=== PATIENT | female | born 1960 | race Caucasian/White ===

== ENCOUNTER 2017-08-11 11:25 | Emergency (ER) | payer SELFPAY ==
[~2017-08-11] VITALS: Ht 160 cm; Wt 74.8 kg
[~2017-08-11 11:25] MED LIST: ACYC800T PO; HYDR-757 PO; IBUP200C75 PO; METO-370 PO
--- NOTE | 2017-08-11 11:49 | ED Cough/URI ---
General Chief Complaint: Respiratory Problems Stated Complaint: COUGH/CONGESTION WHEEZING Nursing Triage Note: C/O PRODUCTIVE COUGH TIMES 3 WEEKS History of Present Illness Date Seen by Provider: Aug 11, 2017 Time Seen by Provider: 11:35 Initial Comments Patient presents to emergency room with cough, congestion for 2 weeks. Patient reports just finishing a course of antibiotics for an infected tooth. Patient has been taking Coricidin sdbq-xip-gkibwec without relief. Timing/Duration: other (2 weeks) Severity/Quality: productive cough Prior Episodes/Possible Cause: no prior episodes Modifying Factors: Worse With Lying Down Associated Symptoms: nasal congestion, nasal drainage Allergies and Home Medications Allergies Uncoded Allergies: PCN (Adverse Reaction, Unknown, UNKNOWN, 04/03/17) Home Medications Acyclovir 800 Mg Tablet, 800 MG PO 5XD Prescribed by: LB BEAN on 04/03/17 1147 Hydrocodone/Acetaminophen 1 Each Tablet, 1 EACH PO Q4H PRN for PAIN-SEVERE Prescribed by: LB BEAN on 04/03/17 114 Ibuprofen 200 Mg Capsule, 200 MG PO PRN, (Reported) Metoprolol Succinate 50 Mg Tab.er.24h, 50 MG PO DAILY Prescribed by: LB BEAN on 04/03/17 1147 Patient Home Medication List Home Medication List Reviewed: Yes Constitutional: see HPI, other (cough and congestion) EENTM: see HPI, no symptoms reported Respiratory: cough, phlegm Cardiovascular: no symptoms reported, see HPI Gastrointestinal: no symptoms reported, see HPI Genitourinary: no symptoms reported, see HPI Musculoskeletal: no symptoms reported, see HPI Skin: no symptoms reported, see HPI Psychiatric/Neurological: No Symptoms Reported, See HPI Hematologic/Lymphatic: No Symptoms Reported, See HPI Immunological/Allergic: no symptoms reported, see HPI Past Xvhlilc-Uyvtzy-Nhpqke Hx Patient Social History Alcohol Use: Denies Use Recreational Drug Use: No Smoking Status: Current Everyday Smoker Recent Foreign Travel: No Contact w/Someone Who Travel: No Recent Infectious Disease Expo: No Recent Hopitalizations: No Physical Abuse: No Sexual Abuse: No Mistreated: No Fear: No Immunizations Up To Date Tetanus Booster (TDap): Unknown Surgeries History of Surgeries: Yes Surgeries: Appendectomy Respiratory History of Respiratory Disorde: No Cardiovascular History of Cardiac Disorders: Yes Cardiac Disorders: Hypertension Neurological History of Neurological Disord: No Reproductive System Female Reproductive Disorders: Ovarian Cyst Genitourinary History of Genitourinary Disor: No Gastrointestinal History of Gastrointestinal Di: No Musculoskeletal History of Musculoskeletal Dis: No Endocrine History of Endocrine Disorders: No HEENT History of HEENT Disorders: No Cancer 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: Ovarian Psychosocial History of Psychiatric Problem: No Suicide Risk Score: 0 Integumentary History of Skin or Integumenta: Yes Skin/Integumentary Disorders: Recent Skin Changes Blood Transfusions History of Blood Disorders: No Adverse Reaction to a Blood Tr: No Physical Exam Vital Signs Vital Signs - First Documented 08/11/17 11:33 Temp 98.0 Pulse 75 Resp 20 B/P (MAP) 180/90 (120) Pulse Ox 96 Capillary Refill : Less Than 3 Seconds General Appearance: WD/WN, no apparent distress Eyes: Bilateral Eye Normal Inspection HEENT: PERRL/EOMI, normal ENT inspection Neck: non-tender, full range of motion Respiratory: chest non-tender, lungs clear, normal breath sounds, no respiratory distress, no accessory muscle use Cardiovascular: normal peripheral pulses, regular rate, rhythm, no edema, no gallop, no JVD, no murmur Gastrointestinal: normal bowel sounds, non tender Extremities: normal range of motion, non-tender, normal inspection, no pedal edema, no calf tenderness Neurologic/Psychiatric: alert, normal mood/affect, oriented x 3 Skin: normal color, warm/dry Progress/Results/Core Measures Suspected Sepsis Recent Fever Within 48 Hours: No Infection Criteria Present: None New/Unexplained Altered Menta: No Sepsis Screen: No Definite Risk Sepsis Diagnosis: SIRS Temperature:98.0 Pulse: 75 Respiratory Rate: 20 Blood Pressure 180 /90 Mean: 120 Results/Orders My Orders Orders - LB BEAN APRN Chest Pa/Lat (2 View) (08/11/17 11:34) Vital Signs/I&O Vital Sign - Last 12Hours 08/11/17 11:33 Temp 98.0 Pulse 75 Resp 20 B/P (MAP) 180/90 (120) Pulse Ox 96 Capillary Refill : Less Than 3 Seconds Blood Pressure Mean: 120 Departure Impression Impression: Primary Impression: Hypertension Additional Impression: Bronchitis Disposition: 01 HOME, SELF-CARE Condition: Stable Departure-Patient Inst. Decision time for Depature: 12:07 Referrals: SHASHANK FRAGOSO MD (PCP/Family) Primary Care Physician Patient Instructions: Acute Bronchitis, Adult (DC), High Blood Pressure (DC) Add. Discharge Instructions: 1. Medication as directed 2. Follow-up with your doctor next week 3. Return to ER for any concerns All discharge instructions reviewed with patient and/or family. Voiced understanding. Scripts Lisinopril (Lisinopril) 10 Mg Tablet 10 MG PO DAILY, #10 TAB Prov: LB BEAN APRN 08/11/17 Azithromycin (Azithromycin) 250 Mg Tablet 250 MG PO UD, #6 TAB TAKE 2 TABLETS ON DAY ONE THEN TAKE 1 TABLET DAILY FOR FOUR MORE DAYS Prov: LB BEAN APRN 08/11/17 Prednisone (Prednisone) 20 Mg Tab 40 MG PO DAILY, #8 TAB Prov: LB BEAN APRN 08/11/17 LB BEAN APRN Aug 11, 2017 11:49
[2017-08-11] MEDS ORDERED: AZIT250T12 PO (12:08)
[2017-08-11] MEDS ORDERED: LISI10TA2 PO (12:08)
[2017-08-11] MEDS ORDERED: PRD20T PO (12:08)
--- NOTE | 2017-08-11 12:09 | Diagnostic Imaging Report ---
INDICATION: Congestion and wheezing. Time of exam 12:09 PM No prior studies are available for comparison. The heart size is normal. The pulmonary vascularity is unremarkable. The lungs are clear. No infiltrate, effusion or pneumothorax is detected. Impression: No acute cardiopulmonary process is detected. Dictated by: Dictated on workstation # [id number]
[2017-08-11 12:17] VITALS: BP 138/87
--- OUTSIDE RECORDS SUMMARY | 2017-08-13 04:26 | XMS REPORT | Continuity of Care Document ---
Author Author [facility] Address Unknown Phone Unavailable Allergies Active Description Code Type Severity Reaction Onset Reported/Identified Relationship to Patient Clinical Status Yes Penicillins Drug Allergy N/A N/A 09/04/2014 Medications There is no data. Problems Date Dx Coded Attending Type Code Diagnosis Diagnosed By 01/16/2012 300.00 ANXIETY STATE UNSPECIFIED 01/16/2012 GWENDOLYN VALDIVIA APRN A 300.00 ANXIETY STATE UNSPECIFIED 01/16/2012 MATT CHURCHILL DO 300.00 ANXIETY STATE UNSPECIFIED 01/16/2012 SHANON CYR APRN S 300.00 ANXIETY STATE UNSPECIFIED 01/16/2012 MATT CHURCHILL DO K 300.00 ANXIETY STATE UNSPECIFIED 01/16/2012 MATT CHURCHILL DO K 300.00 ANXIETY STATE UNSPECIFIED 01/03/2013 GWENDOLYN VALDIVIA APRN A 626.8 DYSFUNCTIONAL UTERINE BLEEDING 01/03/2013 GWENDOLYN VALDIVIA APRN A V19.8 FAMILY HISTORY OF OTHER CONDITION 01/03/2013 MATT CHURCHILL DO K 626.8 DYSFUNCTIONAL UTERINE BLEEDING 01/03/2013 MATT CHURCHILL DO K V19.8 FAMILY HISTORY OF OTHER CONDITION 01/03/2013 SHANON CYR APRN S 626.8 DYSFUNCTIONAL UTERINE BLEEDING 01/03/2013 SHANON CYR APRN S V19.8 FAMILY HISTORY OF OTHER CONDITION 01/03/2013 MATT CHURCHILL DO K 626.8 DYSFUNCTIONAL UTERINE BLEEDING 01/03/2013 MATT CHURCHILL DO K V19.8 FAMILY HISTORY OF OTHER CONDITION 01/03/2013 MATT CHURCHILL DO K 626.8 DYSFUNCTIONAL UTERINE BLEEDING 01/03/2013 MANUEL CHURCHILL DOA K V19.8 FAMILY HISTORY OF OTHER CONDITION 03/20/2013 GWENDOLYN VALDIVIA APRN A 305.1 TOBACCO ABUSE 03/20/2013 GWENDOLYN VALDIVIA APRN A 627.8 OTHER SPECIFIED MENOPAUSAL AND POSTMENOPAUSAL DISORDERS 03/20/2013 SHEA TIP LENGTH CHECKER GWENDOLYN A V73.81 HPV SCREENING 03/20/2013 SHEA TIP LENGTH CHECKERGUEVARAGWENDOLYN A V76.10 BREAST CANCER SCREENING 03/20/2013 SHEA LEROYNGUEVARAGWENDOLYN A V76.2 CERVICAL CANCER SCREENING (PAP SMEAR) 03/20/2013 SHEA LEROYN GWENDOLYN A V76.51 COLON CANCER SCREENING 03/20/2013 CHURCHILL DO, MATT K 305.1 TOBACCO ABUSE 03/20/2013 CHURCHILL DO, MATT K 627.8 OTHER SPECIFIED MENOPAUSAL AND POSTMENOPAUSAL DISORDERS 03/20/2013 CHURCHILL DO, MATT K V73.81 HPV SCREENING 03/20/2013 CHURCHILL DO, MATT K V76.10 BREAST CANCER SCREENING 03/20/2013 CHURCHILL DO, MATT K V76.2 CERVICAL CANCER SCREENING (PAP SMEAR) 03/20/2013 CHURCHILL DO MATT K V76.51 COLON CANCER SCREENING 03/20/2013 GER GARZA SHANON S 305.1 TOBACCO ABUSE 03/20/2013 JOVANNY CYR APRNNDA S 627.8 OTHER SPECIFIED MENOPAUSAL AND POSTMENOPAUSAL DISORDERS 03/20/2013 JOVANNY CYR APRNNDA S V73.81 HPV SCREENING 03/20/2013 JOVANNY CYR APRNNDA S V76.10 BREAST CANCER SCREENING 03/20/2013 JOVANNY CYR APRNNDA S V76.2 CERVICAL CANCER SCREENING (PAP SMEAR) 03/20/2013 GER TIP LENGTH CHECKER, SHANON S V76.51 COLON CANCER SCREENING 03/20/2013 CHURCHILL DO MATT K 305.1 TOBACCO ABUSE 03/20/2013 CHURCHILL DO, MATT K 627.8 OTHER SPECIFIED MENOPAUSAL AND POSTMENOPAUSAL DISORDERS 03/20/2013 CHURCHILL DO, MATT K V73.81 HPV SCREENING 03/20/2013 CHURCHILL DO, MATT K V76.10 BREAST CANCER SCREENING 03/20/2013 CHURCHILL DO, MATT K V76.2 CERVICAL CANCER SCREENING (PAP SMEAR) 03/20/2013 CHURCHILL DO, MATT K V76.51 COLON CANCER SCREENING 03/20/2013 CHURCHILL DO, MATT K 305.1 TOBACCO ABUSE 03/20/2013 CHURCHILL DO, MATT K 627.8 OTHER SPECIFIED MENOPAUSAL AND POSTMENOPAUSAL DISORDERS 03/20/2013 CHURCHILL DO, MATT K V73.81 HPV SCREENING 03/20/2013 MATT CHURCHILL DO V76.10 BREAST CANCER SCREENING 03/20/2013 MATT CHURCHILL DO V76.2 CERVICAL CANCER SCREENING (PAP SMEAR) 03/20/2013 MATT CHURCHILL DO V76.51 COLON CANCER SCREENING 04/25/2013 MATT CHURCHILL DO 782.1 RASH 04/25/2013 SHANON CYR APRN S 782.1 RASH 04/25/2013 MATT CHURCHILL DO 782.1 RASH 04/25/2013 MATT CHURCHILL DO 782.1 RASH 11/11/2013 SHANON CYR APRN S V18.0 FAMILY HISTORY OF DIABETES MELLITUS 11/11/2013 MATT CHURCHILL DO V18.0 FAMILY HISTORY OF DIABETES MELLITUS 11/11/2013 MATT CHURCHILL DO V18.0 FAMILY HISTORY OF DIABETES MELLITUS 06/27/2014 MATT CHURCHILL DO 401.1 HYPERTENSION, BENIGN ESSENTIAL 06/27/2014 MATT CHURCHILL DO 719.43 PAIN IN JOINT INVOLVING FOREARM 06/27/2014 MATT CHURCHILL DO 724.3 SCIATICA 06/27/2014 MATT CHURCHILL DO 401.1 HYPERTENSION, BENIGN ESSENTIAL 06/27/2014 MATT CHURCHILL DO 719.43 PAIN IN JOINT INVOLVING FOREARM 06/27/2014 MATT CHURCHILL DO 724.3 SCIATICA 09/04/2014 MATT CHURCHILL DO 240.9 GOITER UNSPECIFIED Procedures Code [place] [address] HEMOCCULT 03/20/2013 01658 MAMMOGRAM, SCREENING 03/21/2013 Q0091 PAP SMEAR OBTAIN SMEAR 03/21/2013 58114 PAP SMEAR 03/25/2013 91025 BIOPSY SKIN LESION (SINGLE) 04/29/2013 54516 BIOPSY SKIN (EACH ADD'L) 04/29/2013 Results There is no data. Encounters ACCT No. Visit Date/Time Discharge Status Pt. Type Provider Facility Loc./Unit Complaint [id number] 09/04/2014 10:14:00 09/04/2014 23:59:59 CLS Outpatient MATT CHURCHILL DO [id number] 07/01/2014 11:08:00 07/01/2014 23:59:59 CLS Outpatient MATT CHURCHILL DO [id number] 11/11/2013 15:14:00 11/11/2013 23:59:59 CLS Outpatient SHANON CYR APRN [id number] 04/25/2013 18:56:00 04/25/2013 23:59:59 CLS Outpatient MATT CHURCHILL DO [id number] 03/20/2013 16:01:00 03/20/2013 23:59:59 CLS Outpatient GWENDOLYN VALDIVIA APRN [id number] 01/16/2012 14:29:00 01/16/2012 23:59:59 CLS Outpatient
== END 2017-08-11 12:17 | disposition home or self-care (01) ==
LOC: EDUNIT# 11:25 → ER 11:28
DX: J40 Bronchitis, not specified as acute or chronic (principal); I10 Essential (primary) hypertension; F17.200 Nicotine dependence, unspecified, uncomplicated; Z90.49 Acquired absence of other specified parts of digestive tract; Z87.448 Personal history of other diseases of urinary system; Z85.43 Personal history of malignant neoplasm of ovary
CPT/HCPCS: 71046

== ENCOUNTER 2021-09-17 18:33 | Emergency (ER) | payer MEDICAID ==
[~2021-09-17] VITALS: Ht 160 cm; Wt 81.6 kg
[~2021-09-17 18:33] MED LIST changes: +ACYC-112 PO; -ACYC800T PO; +AZIT250T12 PO; +HYDR-4226 PO; -HYDR-757 PO; +IBUP-2185 PO; -IBUP200C75 PO; +LISI10TA25 PO; -METO-370 PO; +METO50TA7 PO; +PRD20T PO
--- NOTE | 2021-09-17 19:16 | ED General ---
General Chief Complaint: Cardiac/General Problems Stated Complaint: DIARRHEA - HIGH BP Nursing Triage Note: PT PRESENTS TO ED WITH COMPLAINTS OF HTN X 3 YEARS. REPORTS HER PRIMARY PROVIDER WONT FILL HER BP MEDS BECAUSE SHE NEEDS BLOOD WORK DONE AND SHE IS SCARED TO GET BLOOD DRAWN SO SHE HASNT DONE IT YET. PT ALSO REPORTS DIARRHEA X 2 YEARS. Source of Information: Patient Exam Limitations: No Limitations History of Present Illness Date Seen by Provider: Sep 17, 2021 Time Seen by Provider: 19:00 Initial Comments Patient is a 61-year-old female who presents to the emergency department, significant anxiety with concerns over elevated blood pressure and chronic diarrhea. Patient states that she used to be on blood pressure medications however her doctor at [facility] will not refill them until she has blood work done. She has a significant fear of needles and has declined blood work at the clinic. She states she has diarrhea every time she eats, at least 3 times a day. She states its been a little bit black but she has been taking Pepto-Bismol for her symptoms. She denies chest pain or shortness of breath. Denies abdominal pain with eating. No avtar blood in the stool. She has had a little discomfort with urination and complains of urinary incontinence, stress incontinence. She denies visual complaints but has had headaches both evening and in the mornings when she wakes up. She states she can feel when her blood pressure goes high because her face gets red and she gets very hot. Family history of diabetes and hypertension. No history of thyroid disorder. Remote history of ovarian cancer/tumor as a 17-year-old. All other review of systems reviewed and negative except as stated. Timing/Duration: Constant Severity: Moderate Modifying Factors: improves with Other (pepto bismol) Associated Systoms: Other (diarrhea; intermittant headaches) Allergies and Home Medications Allergies Uncoded Allergies: PCN (Adverse Reaction, Unknown, UNKNOWN, 04/03/17) Patient Home Medication List Home Medication List Reviewed: Yes Acyclovir (Acyclovir) 800 Mg Tablet, 800 MG PO 5XD Prescribed by: LB BEAN on 04/03/17 1147 Azithromycin (Azithromycin) 250 Mg Tablet, 250 MG PO UD Prescribed by: LB BEAN on 08/11/17 1208 Hydrocodone/Acetaminophen (Hydrocodone/Acetaminophen 5 MG/325 MG TAB) 1 Each Tablet, 1 EACH PO Q4H PRN for PAIN-SEVERE Prescribed by: LB BEAN on 04/03/17 1147 Ibuprofen (Ibuprofen) 200 Mg Capsule, 200 MG PO PRN, (Reported) Entered as Reported by: RADHA LYNCH on 04/03/17 1131 Metoprolol Succinate (Metoprolol Succinate) 50 Mg Tab.er.24h, 50 MG PO DAILY Prescribed by: LB BEAN on 04/03/17 1147 Prednisone (Prednisone) 20 Mg Tab, 40 MG PO DAILY Prescribed by: LB BEAN on 08/11/17 1208 Review of Systems Review of Systems Constitutional: see HPI EENTM: no symptoms reported Respiratory: no symptoms reported Cardiovascular: no symptoms reported Gastrointestinal: diarrhea Genitourinary: dysuria : No Musculoskeletal: no symptoms reported Skin: no symptoms reported Psychiatric/Neurological: Anxiety (severe) All Other Systems Reviewed Negative Unless Noted: Yes Past Vqgbouh-Ffuqdd-Thyapt Hx Patient Social History Tobacco Use?: Yes Tobacco type used: Cigarettes Smoking Status: Current Everyday Smoker Substance use?: No Alcohol Use?: No Pt feels they are or have been: No Immunizations Up To Date Tetanus Booster (TDap): Unknown Past Medical History Surgery/Hospitalization HX: PMH: HTN, ANXIETY SX: APPY Surgeries: Yes Appendectomy Respiratory: No Cardiac: Yes Hypertension Neurological: No Female Reproductive Disorders: Ovarian Cyst Genitourinary: No Gastrointestinal: No Musculoskeletal: No Endocrine: No HEENT: No Cancer: Yes (TUMOR REMOVED WHEN PT. WAS 17) Ovarian Psychosocial: No Integumentary: Yes Recent Skin Changes Blood Disorders: No Adverse Reaction/Blood Tranf: No Physical Exam Vital Signs Vital Signs - First Documented 09/17/21 18:51 Temp 36.0 Pulse 74 Resp 18 B/P (MAP) 182/136 (151) Pulse Ox 98 Capillary Refill : Less Than 3 Seconds Height, Weight, BMI Height: 5'3.00" Weight: 165lbs. oz. 74.012100db; 31.00 BMI Method:Stated General Appearance: WD/WN, Anxious Eyes: Bilateral Eye Normal Inspection, Bilateral Eye PERRL, Bilateral Eye EOMI HEENT: PERRL/EOMI, Normal ENT Inspection, Pharynx Normal, TM Abnormal (L) (occl uded by cerumen) Neck: Normal Inspection, Non Tender, Lymphadenopathy (L), Lymphadenopathy (R) (cubmandibular) Respiratory: Lungs Clear, Normal Breath Sounds, No Accessory Muscle Use, No Respiratory Distress Cardiovascular: Regular Rate, Rhythm, Normal Peripheral Pulses Gastrointestinal: Normal Bowel Sounds, No Organomegaly, Non Tender, Soft Extremity: Normal Capillary Refill, Normal Inspection, Normal Range of Motion, Non Tender, No Calf Tenderness, No Pedal Edema Neurologic/Psychiatric: Alert, Oriented x3, No Motor/Sensory Deficits, Normal Mood/Affect (anxious) Skin: Normal Color, Warm/Dry Progress/Results/Core Measures Suspected Sepsis SIRS Temperature: Pulse: 74 Respiratory Rate: 18 Laboratory Tests 09/17/21 19:30: White Blood Count 6.6 Blood Pressure 182 /136 Mean: 151 Laboratory Tests 09/17/21 19:30: Creatinine 0.92, Platelet Count 216, Total Bilirubin 0.2 Results/Orders Lab Results Laboratory Tests Test 09/17/21 19:30 09/17/21 20:10 Range/Units White Blood Count 6.6 4.3-11.0 10^3/uL Red Blood Count 4.68 3.80-5.11 10^6/uL Hemoglobin 14.1 11.5-16.0 g/dL Hematocrit 43 35-52 % Mean Corpuscular Volume 92 80-99 fL Mean Corpuscular Hemoglobin 30 25-34 pg Mean Corpuscular Hemoglobin Concent 33 32-36 g/dL Red Cell Distribution Width 13.3 10.0-14.5 % Platelet Count 216 130-400 10^3/uL Mean Platelet Volume 10.6 9.0-12.2 fL Immature Granulocyte % (Auto) 1 % Neutrophils (%) (Auto) 56 42-75 % Lymphocytes (%) (Auto) 33 12-44 % Monocytes (%) (Auto) 9 0-12 % Eosinophils (%) (Auto) 2 0-10 % Basophils (%) (Auto) 1 0-10 % Neutrophils # (Auto) 3.7 1.8-7.8 10^3/uL Lymphocytes # (Auto) 2.2 1.0-4.0 10^3/uL Monocytes # (Auto) 0.6 0.0-1.0 10^3/uL Eosinophils # (Auto) 0.1 0.0-0.3 10^3/uL Basophils # (Auto) 0.0 0.0-0.1 10^3/uL Immature Granulocyte # (Auto) 0.0 0.0-0.1 10^3/uL Sodium Level 142 135-145 MMOL/L Potassium Level 4.2 3.6-5.0 MMOL/L Chloride Level 107 98-107 MMOL/L Carbon Dioxide Level 22 21-32 MMOL/L Anion Gap 13 5-14 MMOL/L Blood Urea Nitrogen 26 H 7-18 MG/DL Creatinine 0.92 0.60-1.30 MG/DL Estimat Glomerular Filtration Rate 71 BUN/Creatinine Ratio 28 Glucose Level 87 70-105 MG/DL Calcium Level 9.5 8.5-10.1 MG/DL Corrected Calcium 9.3 8.5-10.1 MG/DL Total Bilirubin 0.2 0.1-1.0 MG/DL Aspartate Amino Transf (AST/SGOT) 18 5-34 U/L Alanine Aminotransferase (ALT/SGPT) 24 0-55 U/L Alkaline Phosphatase 91 40-136 U/L Total Protein 7.2 6.4-8.2 GM/DL Albumin 4.2 3.2-4.5 GM/DL TSH [place] Testing 1.12 0.35-4.94 UIU/ML Urine Color YELLOW Urine Clarity CLEAR Urine pH 6.0 5-9 Urine Specific [place] 1.025 H 1.016-1.022 Urine Protein NEGATIVE NEGATIVE Urine Glucose (UA) NEGATIVE NEGATIVE Urine Ketones NEGATIVE NEGATIVE Urine Nitrite NEGATIVE NEGATIVE Urine Bilirubin NEGATIVE NEGATIVE Urine Urobilinogen 0.2 < = 1.0 MG/DL Urine Leukocyte Esterase NEGATIVE NEGATIVE Urine RBC (Auto) TRACE-I H NEGATIVE Urine RBC 0-2 /HPF Urine WBC RARE /HPF Urine Squamous Epithelial Cells 0-2 /HPF Urine Crystals NONE /LPF Urine Bacteria FEW H /HPF Urine Casts NONE /LPF Urine Mucus NEGATIVE /LPF Urine Culture Indicated YES My Orders Orders - MAXX IQBAL MD Ed Iv/Invasive Line Start (09/17/21 19:09) Cbc With Automated Diff (09/17/21 19:09) Comprehensive Metabolic Panel (09/17/21 19:09) Ua Culture If Indicated (09/17/21 19:09) Thyroid Analyzer (09/17/21 19:09) Urine Culture (09/17/21 20:10) Lisinopril Tablet (Zestril Tablet) (09/17/21 21:00) Vital Signs/I&O 09/17/21 18:51 Temp 36.0 Pulse 74 Resp 18 B/P (MAP) 182/136 (151) Pulse Ox 98 Capillary Refill : Less Than 3 Seconds Blood Pressure Mean: 151 Progress Note : Time: 20:51 Progress Note Patient reevaluated after labs returned. All of her labs are reviewed and within normal limits. Everything looks really great. Her blood pressures did come down into the 160 range however when I went back into talk to her they steadily climbed back up to about 200 systolic. She was reassured by the normal laboratory evaluation. Chart review reveals the patient has been on lisinopril as well as metoprolol in the past. I am going to go ahead and put her back on lisinopril 10 mg tablets. She is given 1 this evening and I will send a prescription over to [facility] for her. I recommended that she follow-up with Dr. Fragoso in the office. She will likely need a colonoscopy. She has never had one before. I recommended uyou-rgp-wlsodoh FiberCon or Metamucil to help bulk up her stools. She can continue the Pepto-Bismol if it is helping her symptoms. She has no concerning findings for an infectious cause of her diarrhea. Return precautions discussed. Patient seems comfortable with the plan of care all questions are sought and answered. Counseling-Asymptomatic: 3-10 minutes Follow-up with PCP to: Discuss Further Options Departure Impression Primary Impression: High blood pressure Qualified Codes: I10 - Essential (primary) hypertension Additional Impression: Chronic diarrhea Disposition: 01 HOME, SELF-CARE Condition: Stable Departure-Patient Inst. Decision time for Depature: 20:54 Referrals: SHASHANK FRAGOSO MD (PCP/Family) Primary Care Physician Patient Instructions: High Blood Pressure ED, Diarrhea in Adolescents and Adults Add. Discharge Instructions: I have sent a prescription for lisinopril to your pharmacy. You can start this prescription tomorrow. Please monitor your blood pressure and keep a record of it for your primary care physician. Take your blood pressure cuff to your next appointment with Dr. Aislinn wiggins. You can try rixy-jmg-zdzrczk fiber supplements such as FiberCon or Metamucil to help bulk up your stools. You can continue to take Pepto-Bismol as needed. If you develop a fever or abdominal pain with the diarrhea please come back to the emergency department for reevaluation. Scripts Lisinopril (Lisinopril) 10 Mg Tablet 10 MG PO DAILY for 30 Days, #30 TAB Prov: MAXX IQBAL MD 09/17/21 Copy Copies To 1: SHASHANK FRAGOSO MD, KATHRYN M MD Sep 17, 2021 19:15
[2021-09-17 19:39] LABS: BASOPHILS % (AUTO) 1 % (0-10); EOSINOPHILS # (AUTO) 0.1 10^3/uL (0.0-0.3); EOSINOPHILS % (AUTO) 2 % (0-10); HEMATOCRIT 43 % (35-52); HEMOGLOBIN 14.1 g/dL (11.5-16.0); LYMPHOCYTES # (AUTO) 2.2 10^3/uL (1.0-4.0); LYMPHOCYTES % (AUTO) 33 % (12-44); MEAN CORPUSCULAR HEMOGLOBIN 30 pg (25-34); MEAN CORPUSCULAR HGB CONC 33 g/dL (32-36); MEAN CORPUSCULAR VOLUME 92 fL (80-99); MEAN PLATELET VOLUME 10.6 fL (9.0-12.2); MONOCYTES # (AUTO) 0.6 10^3/uL (0.0-1.0); MONOCYTES % (AUTO) 9 % (0-12); NEUTROPHILS # (AUTO) 3.7 10^3/uL (1.8-7.8); NEUTROPHILS % (AUTO) 56 % (42-75); PLATELET COUNT 216 10^3/uL (130-400); WHITE BLOOD COUNT 6.6 10^3/uL (4.3-11.0)
[2021-09-17 19:49] LABS: ALBUMIN 4.2 GM/DL (3.2-4.5); POTASSIUM 4.2 MMOL/L (3.6-5.0)
[2021-09-17 19:50] LABS: CALCIUM 9.5 MG/DL (8.5-10.1)
[2021-09-17 19:51] LABS: TOTAL PROTEIN 7.2 GM/DL (6.4-8.2)
[2021-09-17 19:53] LABS: BILIRUBIN,TOTAL 0.2 MG/DL (0.1-1.0)
[2021-09-17 19:55] LABS: CREATININE SERUM 0.92 MG/DL (0.60-1.30)
[2021-09-17 20:13] LABS: TSH (THYROID ANALYZER) 1.12 UIU/ML (0.35-4.94)
[2021-09-17 20:21] LABS: BILIRUBIN,URINE NEGATIVE (NEGATIVE); CLARITY,URINE CLEAR; COLOR,URINE YELLOW; GLUCOSE, URINE (UA) NEGATIVE (NEGATIVE); KETONES,URINE NEGATIVE (NEGATIVE); LEUKOCYTE ESTERASE ,URINE NEGATIVE (NEGATIVE); NITRITE,URINE NEGATIVE (NEGATIVE); PROTEIN,URINE NEGATIVE (NEGATIVE)
[2021-09-17 20:32] LABS: BACTERIA,URINE FEW /HPF; RBC,URINE 0-2 /HPF; SQUAMOUS EPITHELIAL CELL,UR 0-2 /HPF; WBC,URINE RARE /HPF
[2021-09-17] MEDS ORDERED: LISI10TA25 PO (20:56)
[2021-09-17] MEDS ORDERED: lisINopril 10 MG (PRINIVIL) TABLET PO ONE (21:00)
[2021-09-17 21:03] VITALS: BP 178/104
== END 2021-09-17 21:03 | disposition home or self-care (01) ==
LOC: EDUNIT# 18:33 → ER 18:35
DX: I10 Essential (primary) hypertension (principal); R19.7 Diarrhea, unspecified; F17.210 Nicotine dependence, cigarettes, uncomplicated
CPT/HCPCS: 36415; 80053; 81000; 84443; 85025; 87088